=== PATIENT | male | born 1980 | race Asian ===

== ENCOUNTER → 2016-08-04 | Outpatient (CLI) | payer OTHER | LOC: FIMAGING 10:48 | PROVIDERS: ATTEND Nurse Practitioner Family | DX: R05 Cough (principal); F17.200 Nicotine dependence, unspecified, uncomplicated ==

== ENCOUNTER → 2016-08-12 | Outpatient (CLI) | payer OTHER | LOC: FIMAGING 12:12 | PROVIDERS: ATTEND Nurse Practitioner Family | DX: J40 Bronchitis, not specified as acute or chronic (principal); I25.10 Atherosclerotic heart disease of native coronary artery without angina pectoris ==

== ENCOUNTER 2017-05-28 15:35 | Emergency (ER) | payer OTHER ==
[2017-05-28] MEDS ORDERED: NS 1,000 ML IV ONE (15:56)
[2017-05-28] MEDS ORDERED: ONDANSETRON 4 MG/2 ML VIAL IVP ONE (15:56)
--- NOTE | 2017-05-28 16:05 | EDPHY ---
H & P Time Seen by Provider: 05/28/17 15:56 HPI/ROS: CHIEF COMPLAINT: Abdominal pain and vomiting HISTORY OF PRESENT ILLNESS: The patient is a 36 y/o male presents with persistent vomiting. Onset of severe epigastric pain and multiple episodes of vomiting 5 hr ago. The abdominal pain is severe and persistent, somewhat relieved with vomiting. Unable tolerate any oral fluids. Smokes marijuana daily but has never experienced cyclic vomiting. Denies history of similar symptoms. No recent ill contacts or bad food exposure. REVIEW OF SYSTEMS: Aside from elements discussed in the HPI, a comprehensive 10-point review of systems was reviewed and is negative. Past Medical/Surgical History: Denies Social History: Lives in [place], , co-worker at bedside, daily marijuana use Smoking Status: Current every day smoker Physical Exam: General Appearance: Alert, intermittent loud moaning, appears uncomfortable Eyes: Pupils equal and round, no conjunctival pallor or injection ENT, Mouth: Mucous membranes moist Neck: Normal inspection Respiratory: Lungs are clear to auscultation Cardiovascular: Regular rate and rhythm Gastrointestinal: Soft, Epigastric tenderness, normal bowel sounds Neurological: A&O, nonfocal exam Skin: Warm and dry, no rash Extremities: Normal inspection Psychiatric: Fluctuating affect Constitutional: Initial Vital Signs Heart Rate 112 H 05/28/17 15:41 Respiratory Rate 24 H 05/28/17 15:41 Blood Pressure 116/101 H 05/28/17 15:41 O2 Sat (%) 98 05/28/17 15:41 O2 Delivery Mode Room Air Allergies/Adverse Reactions: carisoprodol [From Soma] Allergy (Verified 05/28/17 15:41) Home Medications: Medication Instructions Recorded NK [No Known Home Meds] 05/28/17 Medical Decision Making ED Course/Re-evaluation: The patient is a 36 y/o male presenting with vomiting and abdominal pain since 13:30, 2.5 hours ago. On exam he is intermittently moaning and has epigastric tenderness. 2.5mg IV Haldol, 4mg IV Zofran, and 1L IV NS administered. Clinical presentation is typical of cyclic vomiting syndrome. 1625: Patient is still moaning in bed. Additional 2.5mg IV Haldol administered. IV fluids infusing. Repeat abdominal exam is unchanged. 1711: Reassessed patient, he is feeling much better better and would like to go home. Tolerating oral fluids well. Abdomen is soft and nontender. I discussed the possibility of cyclic vomiting syndrome. Return precautions provided; patient is comfortable with this plan. Differential Diagnosis: Differential diagnosis includes though it is not limited to appendicitis, cholecystitis, diverticulitis, pyelonephritis, bowel perforation, small bowel obstruction. - Data Points Medications Given: Discontinued Medications Haloperidol Lactate (Haldol Injection) 2.5 mg IVP EDNOW ONE Stop: 05/28/17 16:07 Last Admin: 05/28/17 16:11 Dose: 2.5 mg Haloperidol Lactate (Haldol Injection) 2.5 mg IVP EDNOW ONE Stop: 05/28/17 16:25 Last Admin: 05/28/17 16:29 Dose: 2.5 mg Sodium Chloride (Ns) 1,000 mls @ 0 mls/hr IV EDNOW ONE; Wide Open PRN Reason: Protocol Stop: 05/28/17 15:57 Last Admin: 05/28/17 16:03 Dose: 1,000 mls Ondansetron HCl (Zofran) 4 mg IVP EDNOW ONE Stop: 05/28/17 15:57 Last Admin: 05/28/17 16:02 Dose: 4 mg Departure - Departure Disposition: Home, Routine, Self-Care Clinical Impression: Abdominal pain Qualifiers: Abdominal location: epigastric Qualified Code(s): R10.13 - Epigastric pain Vomiting Qualifiers: Vomiting type: cyclical vomiting Vomiting Intractability: non-intractable Nausea presence: with nausea Qualified Code(s): G43.A0 - Cyclical vomiting, not intractable Condition: Good Instructions: Acute Nausea and Vomiting (ED), Acute Abdominal Pain (ED) Additional Instructions: 1. Clear liquids for 24 hours. 2. Advance diet as tolerated. I suggest the BRAT diet to start: bananas, rice, applesauce and toast. 3. Return for worsening symptoms, persistent vomiting, abdominal pain, any concerns. Follow-up with your primary doctor within 72 hours. Referrals: Anthony Alamo MD [Primary Care Provider] - 2-3 days, call for appt. Report Scribed for: Yvette Oneill Report Scribed by: Kary Hill Date of Report: 05/28/17 Time of Report: 16:05 Physician Review and Approval Statement: 05/28/17 16:05 Portions of this note were transcribed by a medical sales. I personally performed a history, physical exam, medical decision making, and confirmed accuracy of information the transcribed note.
[2017-05-28] MEDS ORDERED: HALOPERIDOL LACT 5 MG/ML INJ IVP ONE ×2 (16:06→16:24)
[2017-05-28 18:04] VITALS: BP 108/67; PULSE 67; RESP 17; TEMP 98.1; O2SAT 97
== END 2017-05-28 18:11 | disposition home or self-care (01) ==
DX: R10.13 Epigastric pain (principal); G43.A0 Cyclical vomiting, in migraine, not intractable; F17.200 Nicotine dependence, unspecified, uncomplicated; E86.9 Volume depletion, unspecified
CPT/HCPCS: 96374; J1630; J2405